=== PATIENT | male | born 1990 | race Caucasian/White ===

== ENCOUNTER 2020-03-05 20:44 | Emergency (ER) | payer OTHER, SELFPAY ==
--- NOTE | ~2020-03-05 | XR_ITS ---
EXAMINATION: XR chest 1V portable EXAM DATE: 03/05/2020 21:12 INDICATION: Shortness of breath of 2 days. States exposure to COVID 19. TECHNIQUE: Portable AP frontal chest x-ray was obtained. There is no prior study for comparison. FINDINGS: The lungs are clear. There are no pleural effusions. The cardiomediastinal silhouette is within normal limits. There is no pneumothorax suspected. The bones and soft tissues are unremarkab le. IMPRESSION: Unremarkable chest x-ray exam. Reviewed, dictated and finalized at location A.
[2020-03-05 20:50] VITALS: BP 149/99; PULSE 88; RESP 17; TEMP 37.2; O2SAT 100
--- NOTE | 2020-03-05 20:52 | ED.CHESTPAIN ---
HPI - Chest Pain General Chief Complaint: Chest Pain Stated Complaint: Chest pain, short of breath,tested, not resulted Time Seen by Provider: 03/05/20 20:52 Source: patient Mode of arrival: ambulatory Limitations: no limitations History of Present Illness HPI narrative: Patient is a 29-year-old previously healthy gentleman who presents for evaluation of chest pressure and trouble breathing. Patient states he has had over 3 days worth of pressure over the center of his chest and trouble breathing. No pain with deep inspiration. Patient states his been triggering some anxiety for him and he has been very nervous. Patient states that he was around 3 people, close contacts, that just tested positive for saxena virus over the past 2 days. Patient denies any cough. No fevers. No myalgias. No current nausea or vomiting. No rashes. No diarrhea. Review of Systems Review of Systems: Narrative: CONSTITUTIONAL: Denies fever, chills, or sweats. EYES: Denies visual changes, redness, or discharge. ENT: Denies rhinorrhea, congestion, sore throat, or otalgia. CARDIOVASCULAR: Reports chest pressure, denies edema RESPIRATORY: Reports shortness of breath GASTROINTESTINAL: Denies abdominal pain, nausea, vomiting, or diarrhea. GENITOURINARY: Denies dysuria or hematuria. SKIN: Denies rash or itching. MUSCULOSKELETAL: Denies back pain, joint pain, or myalgia. NEUROLOGIC: Denies headache, numbness, or weakness. PSYCHIATRIC: Reports anxiety PMFSH Past Medical History Medical History No pertinent past medical history Surgical History Surgical History H/O thumb surgery Social History Social History (Updated 03/05/20 @ 21:08 by Lakshmi Alcocer MD) Smoking status: Never smoker Alcohol intake: current Alcohol use details: social, weekends only Substance use: never Additional occupation/education comments: [employer] Gender identity (if verbalized by the patient): Male Exam Narrative: Exam Narrative: GENERAL: Awake, alert, conversant, anxious HEAD: Normocephalic, atraumatic. EYES: PERRLA and EOMI. ENT: Nares clear, no rhinorrhea or epistaxis. Mucous membranes moist. NECK: Supple. CHEST: No respiratory distress, breathing even and non labored, no tachypnea, no chest wall tenderness HEART: Regular rate, sinus rhythm, no murmur ABDOMEN:Non distended, non tender EXTREMITIES: Normal range of motion. No edema. SKIN: Warm, dry, no rash. NEURO:No focal deficits. Alert and oriented x3 Course Vital Signs Vital signs: Vital Signs Temperature 37.2 C 03/05/20 20:50 Pulse Rate 88 03/05/20 20:50 Respiratory Rate 17 03/05/20 20:50 Blood Pressure 149/99 H 03/05/20 20:50 Pulse Oximetry 100 03/05/20 20:50 Temperature 37.2 C 03/05/20 20:50 Pulse Rate 80 03/05/20 21:42 Respiratory Rate 18 03/05/20 21:42 Blood Pressure 123/81 03/05/20 21:42 Pulse Oximetry 100 03/05/20 21:42 MDM - Chest Pain MDM Narrative Medical decision making narrative: Patient with recent COVID exposure, some current exacerbation of anxiety. He was reporting some reported shortness of breath and chest wall pain which is been present over the past 3 to 4 days and constant. No acute ischemic changes on EKG. Patient's EKG and labs are without significant high risk changes. Cardiac risk factors reviewed. Patient is felt low risk for ACS and reasonable for further risk stratification testing as an outpatient. Pain was not sudden or maximal or onset without tearing or ripping quality. No other signs or symptoms to suggest aortic dissection. A low risk well's criteria is noted, PE is felt to be unlikely, furthermore patient did have a d-dimer test which is negative. No pneumonia seen on evaluation today. No severe COVID type features. Oxygen saturations are 100% on room air and patient has no respiratory distress. Patient is felt to be
--- NOTE | 2020-03-05 20:53 | ECG_ITS ---
Measurements Intervals [place] Rate: 87 P: 48 LA: 149 QRS: 81 QRSD: 104 T: 30 QT: 325 QTc: 392 Interpretive Statements SINUS RHYTHM NORMAL ECG Electronically Signed On 03-06-2020 7:36:40 CDT by Miles Boles D.O.
[2020-03-05 21:24] LABS: Basophils Percent Auto 0.5 % (0.2-1.2); Hematocrit 46.8 % (42.0-52.0); Hemoglobin 15.7 g/dL (14.0-18.0); Immature Granulocyte Absolute 0.02 K/mm3 (0.00-0.031); Immature Granulocyte Percent A 0.5 % (0-0.5); Lymphocytes Absolute Auto 1.05 K/mm3 (0.9-3.2); Lymphocytes Percent Auto 26.6 % (18.3-44.2); Mean Corpuscular HGB Conc 33.5 g/dl (32-36); Mean Corpuscular Hemoglobin 28.2 pg (26-34); Mean Platelet Volume 10.1 fl (7.4-10.4); Monocytes Absolute Auto 0.5 K/mm3 (0.1-0.6); Monocytes Percent Auto 13.5 % (2.6-8.5); Neutrophils Absolute Auto 2.3 K/mm3 (1.3-6.7); Neutrophils Percent Auto 57.9 % (45.5-73.1); Platelet Count Result 223 k/mm3 (150-375); Red Blood Count 5.57 M/mm3 (4.6-6.20); Red Cell Distribution Width 11.9 % (11.5-14.5); White Blood Count 3.9 K/mm3 (4.5-10.0)
[2020-03-05] MEDS: LORazepam 0.5 MG TABLET PO (21:31)
[2020-03-05] MEDS: ASPIRIN 81 MG CHEWABLE TABLET 324 MG PO (21:31)
[2020-03-05 21:34] LABS: Partial Thromboplastin Time 28.8 SECONDS (22.3-36.8); Prothrombin Time 12.7 Seconds (11.1-14.7)
[2020-03-05 21:35] LABS: Alanine Aminotransferase 27 U/L (4-50); Albumin Level 4.9 g/dL (3.5-5.1); Alkaline Phosphatase 69 U/L (38-126); Anion Gap 11 mmol/L (8-16); Aspartate Amino Transferase 32 U/L (17-59); Bilirubin,Total 0.6 mg/dL (0.2-1.3); Blood Urea Nitrogen 15 mg/dL (9-20); Calcium 9.3 mg/dL (8.4-10.2); Carbon Dioxide 27 mmol/L (22-30); Chloride 98 mmol/L (98-107); Estimated CRCL calculation 107 ml/min; Estimated Glomerular Filt Rate > 60; Glucose 121 mg/dL (75-110); Sodium 136 mmol/L (137-145)
[2020-03-05 21:42] VITALS: BP 123/81; PULSE 80; RESP 18; O2SAT 100
[2020-03-05 21:42] LABS: D Dimer 0.27 ug/mL (<0.48)
[2020-03-05 21:46] LABS: Troponin I < 0.012 ng/mL (0.000-0.034)
[2020-03-05 22:19] VITALS: BP 138/84; PULSE 85; RESP 17; O2SAT 99
== END 2020-03-05 22:24 | disposition home or self-care (01) ==
PROVIDERS: Emergency Provider Emergency Medicine; PCP Family Medicine
DX: R07.89 Other chest pain (principal); F41.9 Anxiety disorder, unspecified; Z20.828 Contact with and (suspected) exposure to other viral communicable diseases
CPT/HCPCS: 36415; 71045; 80053; 84484; 85025; 85380; 85610; 85730; 93005; 99284; A9270